=== PATIENT | female | born 1970 | race Caucasian/White ===

== ENCOUNTER 2018-09-17 09:37 | Observation (INO) | payer BC ==
[~2018-09-17] VITALS: Ht 177.8 cm; Wt 73.6 kg
--- NOTE | ~2018-09-17 | OP ---
PATIENT NAME: ADI TRINIDAD MEDICAL RECORD: [id number] :70 LOCATION:[id number] ADMISSION DATE:09/17/18 SURGEON: SOLOMON CLEMENTS MD DATE OF OPERATION: 09/18/2018 PREOPERATIVE DIAGNOSIS: Acute cholecystitis. POSTOPERATIVE DIAGNOSIS: Acute cholecystitis. PROCEDURE: Laparoscopic cholecystectomy. SURGEON: Solomon Clements MD REPORT OF PROCEDURE: The patient's abdomen was prepped and draped in sterile fashion. A cutdown was made on the superior aspect of the umbilicus. Vicryls #0 were placed on the fascia bilaterally and the fascia was incised with #15 blade. I then bluntly entered the peritoneal cavity and placed a 12-mm Lorri port. Under direct visualization, a 5-mm trocar was placed in the epigastrium and two more 5-mm trocars were placed in the right subcostal region. The gallbladder was noted to be markedly inflamed with a large stone present at the infundibulum. A needle was used to aspirate the gallbladder with removal of some bilious fluid. This made the gallbladder more easily graspable. At this point, the cystic artery and cystic duct were dissected free. These were clipped proximally and distally and ligated in standard fashion. The gallbladder was then taken off the liver bed using electrocautery and placed into an EndoCatch bag. Any bleeding from the liver bed was then treated with electrocautery. At this point, the ports and insufflation were then removed and the gallbladder was taken out through the umbilicus. The umbilical fascia was closed with interrupted #0 Vicryls times 4. The wound was then irrigated out with normal saline and infused with 10 mL of 0.25% Marcaine with epinephrine. The skin incisions were all closed with subcutaneous 5-0 Monocryl and dressed appropriately. COMPLICATIONS: None. CONDITION: Stable. ANESTHESIA: General endotracheal and local. BLOOD LOSS: Minimal. TRANSINT:[id number] Voice Confirmation ID: [id number] DOCUMENT ID: [id number] SOLOMON CLEMENTS MD CC: [id number] DICTATION DATE: 09/18/18 1333 EDUCATION OFFICER: 09/18/18 1728 ADM IN [facility] [address] [place] [address]
[2018-09-17] MEDS ORDERED: ESTRACE1 MG PO (09:43)
[2018-09-17] MEDS ORDERED: ZYRTEC10 MG PO (09:44)
[2018-09-17 10:05] LABS: APPEARANCE HAZY (CLEAR); COLOR YELLOW (YELLOW)
[2018-09-17 10:06] LABS: BILIRUBIN NEGATIVE (NEGATIVE); GLUCOSE NEGATIVE (NEGATIVE); KETONE NEGATIVE (NEGATIVE); NITRITE NEGATIVE (NEGATIVE); PROTEIN NEGATIVE (NEGATIVE); SPECIFIC GRAVITY 1.015 (1.005-1.020); UROBILINOGEN NORMAL (NORMAL)
[2018-09-17 10:23] LABS: BASOPHILS 0.3 % (0-2); EOSINOPHILS 0.3 % (0-7); HEMATOCRIT 40.5 % (36.0-48.0); HEMOGLOBIN 14.4 g/dL (12-16); IMMATURE GRANULOCYTES 0.1 % (0-5); LYMPHOCYTES 15.3 % (15-50); MCH 31.3 pg (26.0-34.0); MCHC 35.6 g/dL (31.0-37.0); MEAN PLATELET VOLUME 11.2 fL (7.4-10.4); MONOCYTES 4.7 % (2-11); NEUTROPHILS 79.3 % (40-80); PLATELET COUNT 179 10x3/uL (130-400); WBC 7.2 10x3/uL (4.8-10.8)
[2018-09-17 10:35] LABS: ALBUMIN 3.9 g/dL (3.4-5.0); ALKALINE PHOSPHATASE 44 U/L (46-116); ALT (SGPT) 18 U/L (10-68); BILIRUBIN - TOTAL 0.52 mg/dL (0.2-1.3); CALC OSMOLALITY 285 mosm/kg (275-300); CARBON DIOXIDE 29.7 mmol/L (21.0-32.0); CHLORIDE - SERUM 105 mmol/L (98-107); CREATININE - SERUM 0.8 mg/dL (0.6-1.3); GLUCOSE 117 mg/dL (74-106); POTASSIUM - SERUM 3.8 mmol/L (3.5-5.1); PROTEIN - SERUM 7.5 g/dL (6.4-8.2); SODIUM 143 mmol/L (136-145); UREA NITROGEN 12 mg/dL (7-18); eGFR NON AFRICAN AMERICAN 81 mL/min (90-120)
[2018-09-17 10:39] LABS: AMYLASE - SERUM 53 U/L (25-115); LIPASE 90 U/L (73-393); TROPONIN-I < 0.017 ng/mL (0.000-0.060)
[2018-09-17 14:28] VITALS: BP 118/69; Ht 177.8 cm; Wt 73.6 kg
[2018-09-17] MEDS ORDERED: SINGULAIR10 MG PO (14:28)
[2018-09-17 19:48] VITALS: BP 131/58
[2018-09-18] VITALS (15 sets, daily range): BP systolic 92–122; BP diastolic 41–59
[2018-09-18] MEDS ORDERED: NORCO 10-325 TA1 TAB PO (13:27)
[2018-09-18] MEDS ORDERED: PHENERGAN25 M1 PO (13:28)
== END 2018-09-18 18:00 | disposition home or self-care (01) ==
LOC: D.ER 09:37 → D.EDHOLD 12:56 → D.MS 12:56 → OBSVTIME 12:57 → D.MS 13:20
PROVIDERS: Family Medicine
DX: K80.00 Calculus of gallbladder with acute cholecystitis without obstruction (principal)